=== PATIENT | female | born 1990 | race Caucasian/White ===

== ENCOUNTER 2020-03-29 00:46 | Outpatient (CLI) | payer BC, SELFPAY ==
--- NOTE | 2020-03-29 | DI.US_ITS ---
EXAM: US OB 1ST TRIMESTER CLINICAL HISTORY: IUI, CERTAIN DATES, FAX [phone]. COMPARISON: No exams were available for comparison TECHNIQUE: Transabdominal Transvaginal first trimester obstetrical ultrasound performed. FINDINGS: There is a single living intrauterine gestation. Estimated sonographic age is 6 weeks 3 days based o n crown-rump length. heart rate is 157 beats per minute. Yolk sac was visualized. Rt Ovary: 4.0 x 3.0 x 3.4 cm Lt Ovary: 3.2 x 1.5 x 1.3 cm A corpus luteal cyst is seen on the right ovary measuring 2.2 x 2.1 x 1.6 cm. There is a small amount of free fluid adjacent to the right ovary. There are 2 areas projecting in to the gestational sac which are avascular. The larger more sessile area measures 1.7 x 0.9 cm. The smaller area measures 0.5 x 0.6 cm. IMPRESSION: 1. Single live intrauterine gestation as above. 2. Two areas seen beneath the gestational sac as described above. Differential considerations includ e subchorionic hemorrhage or possibly fibroids. A follow-up pelvic ultrasound should be obtained for re-evaluation. DATA REPOSITORY:
== END 2020-03-29 01:06 ==
PROVIDERS: Visit Provider Midwife
DX: Z34.91 Encounter for supervision of normal pregnancy, unspecified, first trimester (principal); N83.11 Corpus luteum cyst of right ovary; Z3A.01 Less than 8 weeks gestation of pregnancy
CPT/HCPCS: 76801

== ENCOUNTER 2020-04-07 04:08 | Outpatient (CLI) | payer BC, SELFPAY ==
[2020-04-07 12:37] LABS: HCT 39.1 % (36.0-46.0); HGB 13.6 g/dL (12.0-15.5)
[2020-04-07 12:43] LABS: Hemoglobin A1C 4.8 % (3.8-5.6)
[2020-04-07 13:16] LABS: Anion Gap 8.4 mmol/L (3-11); CO2 27.6 mmol/L (21.0-32.0); Chloride 99 mmol/L (98-107); Potassium 4.1 mmol/L (3.5-5.1); Sodium 135 mmol/L (136-145)
[2020-04-07 21:45] LABS: T3, Total 144 ng/dL (97-169)
== END 2020-04-07 04:28 ==
PROVIDERS: PCP Advanced Practice Midwife; Visit Provider Advanced Practice Midwife
DX: D64.9 Anemia, unspecified (principal); E05.90 Thyrotoxicosis, unspecified without thyrotoxic crisis or storm; R11.2 Nausea with vomiting, unspecified; Z13.29 Encounter for screening for other suspected endocrine disorder; Z32.00 Encounter for pregnancy test, result unknown
CPT/HCPCS: 36415; 80051; 83036; 84443; 84480; 84702; 85014; 85018

== ENCOUNTER 2023-05-24 15:30 | Outpatient (REF) | payer BC, SELFPAY ==
--- NOTE | 2023-05-24 16:00 | PAPFT_PTH ---
PATIENT: Vladislav Brown LOC: [facility] [place]#:[id number] AGE/SX: 32/F ROOM: RE05/24/[address]: Nery Serrano : 1990 BED: DIS: 05/25/2023 SPEC #: [id number] RECD: 05/25/23 16:17 STATUS: JUDD REJoaquín #: [id number] MARIA ISABEL: 05/24/23 16:[address]: Nery Serrano DEPT: [facility] Cytology RECD BY: Mariana Sykes ENTERED: 05/25/23 16:18 SP TYPE: PAPFT OTHR DR: Sharlene Gonzales Tissues: 1 - CX/ENDOCX FOR PAP SMEARS Procedures: PAP THIN PREP/UVM Screening HPV DNA PROBE Comments: [id number] (CHLAMYDIA/GC)
[2023-05-28 12:55] LABS: Chlamydia Result Negative (Negative); GC Result Negative (Negative)
== END 2023-05-25 15:34 | disposition home or self-care (01) ==
LOC: LBN 15:30
PROVIDERS: PCP Advanced Practice Midwife; Visit Provider Naturopath
DX: Z11.3 Encounter for screening for infections with a predominantly sexual mode of transmission (principal); Z12.4 Encounter for screening for malignant neoplasm of cervix; Z01.419 Encounter for gynecological examination (general) (routine) without abnormal findings; Z11.51 Encounter for screening for human papillomavirus (HPV)
CPT/HCPCS: 87491; 87591; 88142; 87624

== ENCOUNTER → 2023-10-11 01:32 | Outpatient (CLI) | payer BC, SELFPAY ==
--- NOTE | 2023-10-11 13:42 | DI.MAMMO_ITS ---
Exam(s) MAMMO DIAGNOSTIC BI US BREAST LT LIMITED EXAM: MAMMO DIAGNOSTIC BI and U/S breast LT limited CLINICAL HISTORY: DIAGNOSTIC,LT BREAST NODULE AT 11,N63.22,FAMILY H/O BREAST CA,Z80.9. TECHNIQUE: Craniocaudal and mediolateral oblique Full Field Digital Mammography views with Computer Aided Diagnosis followed by Tomosynthesis and left breast ultrasound. COMPARISON: There are no priors for comparison. FINDINGS: Mammography/Tomosynthesis: Masses/Architectural Distortion: None seen. Microcalcifictions: No suspicious pleomorphic-type are seen. Skin Thickening/Nipple Retraction: None. Limited left breast US: Echotexture: Normal appearance of the glandular tissue. Shadowing: No suspicious foci. Cyst: None. Solid lesions: None seen. Ductal dilation: None. IMPRESSION: 1. No evidence of malignancy is noted. 2. Unless there is more urgent need, follow-up screening mammography is recommended, as per [place] [employer] guidelines. In a patient with a strong family history and dense breast tissue, screeni ng breast MRI should be considered. 3. The findings were discussed with the patient on the date of the examination. BI-RADS Category 1 - Negative Breast Density - Category D - Extremely dense Breast density Category C or D implies that the patient has dense breast tissue. Dense breast tissue can make it harder to find cancer on a mammogram. Dense breast tissue is also associated with an incr eased risk of breast cancer. This information about the result of the mammogram report was provided to the patient to raise their awareness. Use this report when you speak with the patient about their risks for breast cancer, which includes their family history. At that time, you may recommend additional screening tests (Ultrasoun d or MRI) as these tests may add significant information. A negative radiographic report should not delay biopsy if a dominant or clinically suspicious mass is present. Up to ten percent of cancers are not identified on mammography. A negative report may reinforce clinical impression. Adenosis and dense breasts may obscure an underlying neoplasm. False positive reports average 6 to 10%. Patient will receive a letter notifying them of these results.
== END ==
PROVIDERS: PCP Advanced Practice Midwife; Visit Provider Naturopath
DX: Z12.31 Encounter for screening mammogram for malignant neoplasm of breast (principal); N63.22 Unspecified lump in the left breast, upper inner quadrant; Z80.9 Family history of malignant neoplasm, unspecified
CPT/HCPCS: 76642; 77062; 77066; G0279

== ENCOUNTER 2024-09-26 01:05 | Outpatient (CLI) | payer BC, SELFPAY ==
[2024-09-26 14:28] LABS: TSH 1.54 uIU/mL (0.36-3.74)
== END 2024-09-26 01:06 | disposition home or self-care (01) ==
LOC: LBO 01:05
PROVIDERS: PCP Advanced Practice Midwife; Visit Provider Student in an Organized Health Care Education/Training Program
DX: R53.83 Other fatigue (principal)
CPT/HCPCS: 36415; 84443

== ENCOUNTER 2024-10-05 22:10 | Emergency (ER) | payer BC, SELFPAY ==
[2024-10-05 22:16] VITALS: BP 108/64; PULSE 69; RESP 18; TEMP 36.8; O2SAT 100
--- NOTE | 2024-10-05 22:17 | ED.GENADUL_ITS ---
Discharge Plan Disposition Patient Disposition: Home Condition: Good Discharge Details Clinical Impression: Scalp laceration Primary Care Provider: Sharlene Gonzales ED Provider: Ari Delcid Meds and Santiago Rx's Prescriptions: Continued sertraline 50 mg tablet 50 mg PO DAILY Discharge Instructions Instructions: Laceration Repair With Sky ED Additional Instructions: You were seen for a small scalp laceration which was repaired with a single staple. You may shower and shampoo as normally but should not be swimming or immersing your head underwater. Watch for any sign of infection which would include increasing pain, redness, drainage. Sky should be removed in approximately 10 days. HPI General Mode of arrival: ambulatory . Date/Time Provider Initiated Documentation: 10/05/24 22:17 . Limitations to Documentation: no limitations . Information obtained by: patient and RN notes reviewed . HPI Narrative: Patient presents to ED with small scalp laceration which she sustained when she struck the corner of her medicine cabinet with her head. There was no loss of consciousness. She is not on anticoagulation. She reports tetanus is up-to-date. No other injury. Bleeding is controlled at this time. Related Data Home Medications ?Medication ?Instructions ?Recorded ?Confirmed sertraline 50 mg tablet 50 mg PO DAILY 10/05/24 10/05/24 Allergies Allergy/AdvReac Type Severity Reaction Status Date / Time No Known Allergies Allergy Verified 10/05/24 22:22 Review of Systems Narrative: Per HPI Exam Narrative Exam Narrative: Const: WDWN female in NAD. VS per triage. HEENT: NC. Small superficial flap laceration to the left frontal scalp area. Normal facial exam. Neck: Supple. Trachea midline. Lungs: Normal respiratory effort. Neuro: A+O x 3. Normal speech, mentation, gait. Cranial nerves II - XII grossly intact. No gross motor or sensory deficit. Procedures Laceration Laceration 1: Site: scalp Side (If applicable): left Size (cm): 0.5 Description: flap and clean Depth: simple, single layer Pre-repair: wound explored, irrigated extensively and deep structures intact Skin layer closed with: other (staple) Number of sutures: 1 Medical Decision Making Patient presenting to ED with a small superficial scalp laceration that is flap- like in nature. Tetanus is up-to-date. Wound cleaned with water and bleeding controlled. 1 staple applied with good approximation and closure. Stable to be removed in about 10 days. Return precautions provided. PFSH All Active Problems (Updated 10/05/24 @ 22:31 by Ari Delcid MD) Scalp laceration (Acute) Social History Smoking/Tobacco Use Status: Never Smoking risk assessment performed?: Yes Substance use type: does not use Housing: house
== END 2024-10-05 22:45 | disposition home or self-care (01) ==
LOC: ER 22:44
PROVIDERS: Emergency Provider Emergency Medicine; PCP Advanced Practice Midwife
DX: S01.01XA Laceration without foreign body of scalp, initial encounter (principal); W22.09XA Striking against other stationary object, initial encounter; Y93.89 Activity, other specified; Y92.012 Bathroom of single-family (private) house as the place of occurrence of the external cause
CPT/HCPCS: 12001; 99283

== ENCOUNTER 2025-01-22 14:03 | Outpatient (REF) | payer OTHER, SELFPAY | END 2025-01-22 14:04 | disposition home or self-care (01) | LOC: LBN 14:03 | PROVIDERS: PCP Advanced Practice Midwife; Visit Provider Physician Assistant Medical | DX: J03.90 Acute tonsillitis, unspecified (principal) | CPT/HCPCS: 87070 ==

== ENCOUNTER 2025-04-16 02:08 | Outpatient (CLI) | payer OTHER, SELFPAY ==
[2025-04-16 12:08] LABS: ALT 20 U/L (14-59); AST 19 U/L (15-37); Albumin 4.4 g/dL (3.4-5.0); Alkaline Phosphatase 57 U/L (46-116); Anion Gap 6.4 mmol/L (3-11); BUN 14 mg/dL (7-18); Bilirubin, Total 0.6 mg/dL (0.2-1.0); CO2 30.6 mmol/L (21.0-32.0); Calcium 9.6 mg/dL (8.5-10.1); Chloride 103 mmol/L (98-107); Estimated GFR 98.48 (mL/min/1.73m2); Glucose 98 mg/dL (74-106); Potassium 4.7 mmol/L (3.5-5.1); Sodium 140 mmol/L (136-145); Total Protein 7.9 g/dL (6.4-8.2)
[2025-04-16 12:13] LABS: Lithium 0.7 mmol/L (0.6-1.2)
== END 2025-04-16 02:09 | disposition home or self-care (01) ==
LOC: LBO 02:08
PROVIDERS: PCP Advanced Practice Midwife; Visit Provider Registered Nurse
DX: F33.2 Major depressive disorder, recurrent severe without psychotic features (principal)
CPT/HCPCS: 36415; 80053; 80178